=== PATIENT | female | born 1985 | race Caucasian/White ===

== ENCOUNTER 2021-03-24 17:23 | Emergency (ER) | payer OTHER ==
[2021-03-24] MEDS ORDERED: CEPHALEXIN500 MG PO (21:38)
[2021-03-24] MEDS ORDERED: HYDROCODON-ACE1 EAC4 PO (21:38)
[2021-03-24] MEDS ORDERED: BACTRIM DS TAB1 EACH PO (21:38)
== END 2021-03-24 22:05 | disposition home or self-care (01) ==
LOC: ER1 17:23
DX: N76.4 Abscess of vulva (principal)
CPT/HCPCS: 56405; 99282

== ENCOUNTER 2021-11-18 13:32 | Outpatient (CLI) | payer OTHER ==
[~2021-11-18] VITALS: Ht 154.9 cm; Wt 89.8 kg
[~2021-11-18 13:32] MED LIST: BACTRIM DS TAB1 EACH PO; CEPHALEXIN500 MG PO; HYDROCODON-ACE1 EAC4 PO
[2021-11-18] MEDS ORDERED: PHENERGAN 25 MG25 M1 PO (14:20)
== END 2021-11-18 16:36 | disposition home or self-care (01) ==
LOC: GENOP 13:32
DX: O99.613 Diseases of the digestive system complicating pregnancy, third trimester (principal); K80.20 Calculus of gallbladder without cholecystitis without obstruction; Z88.8 Allergy status to other drugs, medicaments and biological substances; Z3A.35 35 weeks gestation of pregnancy
CPT/HCPCS: 81001; 96360; 96361; 96374; J2270; J2405; J7120

== ENCOUNTER → 2021-11-21 | Outpatient (CLI) | payer OTHER ==
[~2021-11-21] MED LIST changes: +PHENERGAN 25 MG25 M1 PO
== END ==
LOC: GENOP 18:23
DX: O99.891 Other specified diseases and conditions complicating pregnancy (principal); R10.2 Pelvic and perineal pain; M54.9 Dorsalgia, unspecified; O36.8130 Decreased fetal movements, third trimester, not applicable or unspecified; Z3A.35 35 weeks gestation of pregnancy
CPT/HCPCS: 81001; 96360; 96361; J7120

== ENCOUNTER 2021-11-25 17:33 | Outpatient (CLI) | payer OTHER ==
[2021-11-25 18:18] LABS: HEMOGLOBIN 12.6 gm/dl (12.3-15.3); RED BLOOD COUNT 4.76 M/UL (4.00-5.10); WHITE BLOOD COUNT 8.7 K/UL (4.5-11.0)
[2021-11-25 18:35] LABS: BUN/CREATININE RATIO 20 (0-10)
== END 2021-11-26 09:41 | disposition home or self-care (01) ==
LOC: GENOP 17:33
PROVIDERS: Obstetrics & Gynecology
DX: O99.891 Other specified diseases and conditions complicating pregnancy (principal); M54.9 Dorsalgia, unspecified; Z91.040 Latex allergy status; Z88.8 Allergy status to other drugs, medicaments and biological substances; Z3A.36 36 weeks gestation of pregnancy
CPT/HCPCS: 80053; 81001; 82570; 83615; 84156; 84550; 85025; 96360; 96361; 96374; J2405

== ENCOUNTER 2021-12-01 16:38 | Inpatient (IN) | payer OTHER ==
[~2021-12-01] VITALS: Ht 154.9 cm; Wt 95.3 kg
[2021-12-01 17:21] LABS: RED BLOOD COUNT 4.55 M/UL (4.00-5.10); WHITE BLOOD COUNT 7.5 K/UL (4.5-11.0)
[2021-12-01] MEDS ORDERED: BENTYL 20MG TAB20 MG PO (18:13)
[2021-12-01] MEDS ORDERED: CARAFATE1 GM PO (18:14)
[2021-12-01] MEDS ORDERED: ACID REDUCER10 MG PO (18:15)
[2021-12-02] MEDS ORDERED: IBUPROFEN600 MG PO (18:06)
[2021-12-02] MEDS ORDERED: DOCUSATE SODIU250 MG PO (18:06)
[2021-12-03 05:08] LABS: HEMOGLOBIN 10.4 gm/dl (12.3-15.3)
== END 2021-12-04 19:15 | disposition home or self-care (01) | DRG 806 ==
LOC: GENOP 16:38 → OB 18:09
PROVIDERS: Obstetrics & Gynecology; ADMIT Obstetrics & Gynecology
PROC: 10E0XZZ Delivery of Products of Conception, External Approach (ICD-10-PCS; principal; 2021-12-02)
PROC: 0KQM0ZZ Repair Perineum Muscle, Open Approach (ICD-10-PCS; 2021-12-02)
PROC: 10907ZC Drainage of Amniotic Fluid, Therapeutic from Products of Conception, Via Natural or Artificial Opening (ICD-10-PCS; 2021-12-02)
PROC: 3E033VJ Introduction of Other Hormone into Peripheral Vein, Percutaneous Approach (ICD-10-PCS; 2021-12-02)
PROC: 4A1H7CZ Monitoring of Products of Conception, Cardiac Rate, Via Natural or Artificial Opening (ICD-10-PCS; 2021-12-02)
PROC: 10H073Z Insertion of Monitoring Electrode into Products of Conception, Via Natural or Artificial Opening (ICD-10-PCS; 2021-12-02)
PROC: 0UH97HZ Insertion of Contraceptive Device into Uterus, Via Natural or Artificial Opening (ICD-10-PCS; 2021-12-02)
PROC: 3E0234Z Introduction of Serum, Toxoid and Vaccine into Muscle, Percutaneous Approach (ICD-10-PCS; 2021-12-02)
DX: O13.4 Gestational [pregnancy-induced] hypertension without significant proteinuria, complicating childbirth (principal); K80.10 Calculus of gallbladder with chronic cholecystitis without obstruction; Z37.0 Single live birth; O99.02 Anemia complicating childbirth; O99.214 Obesity complicating childbirth; E78.00 Pure hypercholesterolemia, unspecified; E66.9 Obesity, unspecified; D50.9 Iron deficiency anemia, unspecified; O70.1 Second degree perineal laceration during delivery; O99.62 Diseases of the digestive system complicating childbirth; Z98.890 Other specified postprocedural states; Z82.49 Family history of ischemic heart disease and other diseases of the circulatory system; Z83.3 Family history of diabetes mellitus; Z80.8 Family history of malignant neoplasm of other organs or systems; Z23 Encounter for immunization; Z91.040 Latex allergy status; Z88.8 Allergy status to other drugs, medicaments and biological substances; Z3A.36 36 weeks gestation of pregnancy
CPT/HCPCS: 36415; 81001; 85014; 85018; 85025; 90471; 90472; 90707; 90715; J2590; J7120; U0002

== ENCOUNTER 2021-12-06 20:21 | Emergency (ER) | payer OTHER ==
[~2021-12-06 20:21] MED LIST changes: +ACID REDUCER10 MG PO; +BENTYL 20MG TAB20 MG PO; +CARAFATE1 GM PO; +DOCUSATE SODIU250 MG PO; +IBUPROFEN600 MG PO
[2021-12-06 21:58] LABS: HEMOGLOBIN 11.3 gm/dl (12.3-15.3); RED BLOOD COUNT 4.29 M/UL (4.00-5.10); WHITE BLOOD COUNT 9.8 K/UL (4.5-11.0)
[2021-12-06 22:21] LABS: BUN/CREATININE RATIO 18 (0-10)
[2021-12-07] MEDS ORDERED: BENTYL 20MG TAB20 MG PO (02:59)
[2021-12-07] MEDS ORDERED: CARAFATE1 GM/10 ML PO (02:59)
[2021-12-07] MEDS ORDERED: ZOFRAN ODT 4 MG4 MG PO (02:59)
== END 2021-12-07 03:33 | disposition home or self-care (01) ==
LOC: ER1 20:21
PROVIDERS: Physician Assistant
DX: N20.1 Calculus of ureter (principal); F17.210 Nicotine dependence, cigarettes, uncomplicated
CPT/HCPCS: 80053; 81001; 82150; 83605; 83690; 85025; 87086; 96374; 96375; 99284; J1885; J2270; J2405; J7030; Q9967